=== PATIENT | male | born 1985 | race Caucasian/White ===

== ENCOUNTER 2017-06-12 08:37 | Emergency (ER) | payer MEDICAID ==
[~2017-06-12] VITALS: Ht 182.9 cm; Wt 119.8 kg
[2017-06-12 08:56] VITALS: BP 133/97
--- NOTE | 2017-06-12 09:29 | NUR ---
Patient ambulated to bed 5. RN evaluating patient at bedside.
--- NOTE | 2017-06-12 09:30 | NUR ---
32/M BIB SELF C/o intermittent rash to chest /abdomen/back x 1 month. DENIES N/V/D; AAOX4 WITH EVEN AND STEADY GAIT; LUNGS CLEAR BL; HR EVEN AND REGULAR; PT DENIES ANY FEVER, CP, SOB, OR COUGH AT THIS TIME; PATIENT STATES PAIN OF 0/10 AT THIS TIME; VSS; PATIENT POSITIONED FOR COMFORT; HOB ELEVATED; BEDRAILS UP X2; BED DOWN. ER MD MADE AWARE OF PT STATUS.
--- NOTE | 2017-06-12 09:40 | NUR ---
ER MD DR BOSS EVALUATING PT AT BEDSIDE.
--- NOTE | 2017-06-12 09:50 | NUR ---
Patient appears to be resting comfortably in bed. BP 136/81;DENIES ANY PAIN ' Respirations even and unlabored.WILL CONTINUE TO MONITOR.
[2017-06-12] MEDS ORDERED: methylPREDNISolone SS 125 MG in WATER STERILE 2 ML IM ONE (09:55)
--- NOTE | 2017-06-12 10:00 | NUR ---
ADMINISTERED MED ORDER. Addendum: 06/12/17 at 1005 by [email or web address] MATILDA BOSS REEVALUATING PT AT BEDSIDE.
[2017-06-12 10:12] VITALS: BP 133/92
--- NOTE | 2017-06-12 10:12 | NUR ---
Patient discharged with v/s stable. Written and verbal after care instructions given and explained. Patient alert, oriented and verbalized understanding of instructions. Ambulatory with steady gait. All questions addressed prior to discharge. ID band removed. Patient advised to follow up with PMD. Rx of SELENIUM & PREDNISONE given. Patient educated on indication of medication including possible reaction and side effects. Opportunity to ask questions provided and answered.
== END 2017-06-12 10:12 | disposition home or self-care (01) ==
LOC: MED 08:37
DX: B36.0 Pityriasis versicolor (principal); F17.210 Nicotine dependence, cigarettes, uncomplicated; Z90.89 Acquired absence of other organs; Z71.6 Tobacco abuse counseling
CPT/HCPCS: 96372; 99283; J2930

== ENCOUNTER 2018-06-13 11:14 | Emergency (ER) | payer MEDICAID ==
[~2018-06-13] VITALS: Ht 175.3 cm; Wt 115.7 kg
[2018-06-13 11:17] VITALS: BP 156/96
--- NOTE | 2018-06-13 11:22 | NUR ---
C/O WHITE PATCHES IN THROAT FOR 6 MONTHS. DENIES SOB, PAIN OR FEVER. OROPHARYNX IS CLEAR OF ANY WHITE PATCHES, AIRWAY PATENT. RESP EVEN AND UNLABORED, IN NAD. LS-CLEAR. PT REPORTS SMOKING CIGAREETES AND THE FEAR HE HAS CANCER. PTEACHING DONE ON SMOKING CESSATION, PT VERBALIZED UNDERSTABDING.
--- NOTE | 2018-06-13 12:15 | NUR ---
NO ACUTE CHNAGES IN CONDITON, AWAIITNG FURTHER DISPOSITION
[2018-06-13 12:36] VITALS: BP 144/85
--- NOTE | 2018-06-13 12:36 | NUR ---
Patient discharged with v/s stable. Written and verbal after care instructions given and explained. Patient alert, oriented and verbalized understanding of instructions. Ambulatory with steady gait. All questions addressed prior to discharge. ID band removed. Patient advised to follow up with PMD. Rx of KENALOG given. Patient educated on indication of medication including possible reaction and side effects. Opportunity to ask questions provided and answered.
== END 2018-06-13 12:36 | disposition home or self-care (01) ==
LOC: MED 11:14
DX: K12.0 Recurrent oral aphthae (principal); F17.200 Nicotine dependence, unspecified, uncomplicated
CPT/HCPCS: 99283

== ENCOUNTER 2018-12-10 09:05 | Emergency (ER) | payer MEDICAID ==
[~2018-12-10] VITALS: Ht 175.3 cm; Wt 117.9 kg
[2018-12-10 09:13] VITALS: BP 126/84
--- NOTE | 2018-12-10 09:19 | NUR ---
PT AMBULATED TO ER BED 07
[2018-12-10 10:43] VITALS: BP 126/84
--- NOTE | 2018-12-10 10:43 | NUR ---
Patient discharged with v/s stable. Written and verbal after care instructions given and explained. Patient alert, oriented and verbalized understanding of instructions. Ambulatory with steady gait. All questions addressed prior to discharge. ID band removed. Patient advised to follow up with PMD. Rx of CRUTCHES given. Patient educated on indication of medication including possible reaction and side effects. Opportunity to ask questions provided and answered.
== END 2018-12-10 10:43 | disposition home or self-care (01) ==
LOC: MED 09:05
DX: S93.601A Unspecified sprain of right foot, initial encounter (principal); F17.200 Nicotine dependence, unspecified, uncomplicated; Z90.49 Acquired absence of other specified parts of digestive tract; X58.XXXA Exposure to other specified factors, initial encounter; Y93.39 Activity, other involving climbing, rappelling and jumping off; Y92.89 Other specified places as the place of occurrence of the external cause; Y99.8 Other external cause status
CPT/HCPCS: 73630; 99283; Q0092

== ENCOUNTER 2021-01-10 11:43 | Emergency (ER) | payer MEDICAID ==
[~2021-01-10] VITALS: Ht 175.3 cm; Wt 124.3 kg
[2021-01-10 11:45] VITALS: BP 160/93
--- NOTE | 2021-01-10 11:52 | NUR ---
PT AMBULATED TO BED 8 WITH STEADY GAIT
--- NOTE | 2021-01-10 12:15 | NUR ---
35 YEAR OLD MALE COMPLAINS OF RIGHT SIDED FACIAL SWELLING. PT STATES THAT HE WAS SEEN BY DENTIST FOR THE PAST COUPLE OF WEEKS REGARDING ROOT CANAL. PT STATES THAT THERE WAS PUS COMING OUT OF SITE FOR THE PAST DAY, AND THAT IT USED TO BE VERY PAINFUL BUT NO LONGER FEELING PAIN. RIGHT SIDED FACIAL SWELLING AND REDNESS NOTED. PT TAKING AMOXICILLIN PRESCRIBED BY DENTIST. PT AOX4, BREATHING EVEN AND UNLABORED, SKIN WARM AND DRY. BED IN LOWEST POSITION, LOCKED, BED RAIL UPX1. PMH - DENIES ALLERGIES - NKA
--- NOTE | 2021-01-10 12:32 | NUR ---
airborne weapons technical manager at pt bedside.
[2021-01-10] MEDS ORDERED: AMPICILLIN/SULBACTAM 3 GM VIAL ONE (12:33)
--- NOTE | 2021-01-10 12:41 | NUR ---
RN at pt bedside for assessment.
--- NOTE | 2021-01-10 12:46 | NUR ---
PT TAKEN TO CT
[2021-01-10] MEDS: NACL 0.9% 1,000 ML IV ONE (12:47)
[2021-01-10] MEDS: AMPICILLIN/SULBACTAM 3 GM in NACL 0.9% 100 ML IV ONE (12:48)
[2021-01-10 12:52] LABS: BASOPHILS # (AUTO) 0.1 K/uL (0.00-0.22); BASOPHILS % (AUTO) 0.8 % (0.0-2.0); EOSINOPHILS # (AUTO) 0.1 K/uL (0-0.4); EOSINOPHILS % (AUTO) 0.6 % (0.0-4.0); HEMATOCRIT 47.3 % (36-52); HEMOGLOBIN 16.1 g/dL (12.0-18.0); LYMPHOCYTES # (AUTO) 1.6 K/uL (2.0-11.5); LYMPHOCYTES % (AUTO) 14.3 % (20.5-51.1); MEAN CORPUSCULAR HEMOGLOBIN 32 pg (27-31); MEAN CORPUSCULAR HGB CONC 34 g/dL (33-37); MEAN CORPUSCULAR VOLUME 92.2 fL (80-94); MONOCYTES # (AUTO) 0.6 K/uL (0.8-1.0); MONOCYTES % (AUTO) 4.8 % (1.7-9.3); NEUTROPHILS % (AUTO) 79.5 % (42.2-75.2); PLATELET COUNT (AUTO) 190 K/uL (140-450); RED BLOOD CELL COUNT(AUTO) 5.12 MIL/uL (4.20-6.10); RED CELL DISTRIBUTION WIDTH 13.1 % (11.6-13.7); WHITE BLOOD COUNT (AUTO) 11.3 K/uL (4.8-10.8)
[2021-01-10 13:19] LABS: ANION GAP 14.4 (8-16); CARBON DIOXIDE 27.8 mmol/L (21-32); CREATININE 0.9 mg/dL (0.6-1.3); POTASSIUM 3.2 mmol/L (3.5-5.1)
--- NOTE | 2021-01-10 15:00 | NUR ---
PT ALERT AND AWAKE, BREATHING EVEN AND UNLABORED. NO DISTRESS NOTED.
--- NOTE | 2021-01-10 15:47 | NUR ---
Patient to be transferred to [facility]. Is being transferred due to higher level of care. Receiving facility has accepting physician and available space. ER physician has signed transfer form. Patient or responsible constitution party has agreed to transfer and signed form. Patient belongings inventoried and will be sent with patient. Copy of nursing notes, lab reports, EKG, Physicians Orders and X-rays to be sent with patient. Report called to Law GONZALES at receiving facility. [facility] ambulance service has been called for transfer. ETA is 1600.
--- NOTE | 2021-01-10 16:00 | NUR ---
Michael medina in EDM - 01/10/21 at 1610 by [facility] AT BEDSIDE FOR PATIENT. PT TAKEN AT THIS TIME.
[2021-01-10 16:09] VITALS: BP 173/98
--- NOTE | 2021-01-10 16:10 | NUR ---
[facility] AT BEDSIDE FOR PATIENT. PT TAKEN AT THIS TIME.
--- NOTE | 2021-01-11 20:01 | NUR ---
LATE ENTRY- NORMAL SALINE 0.9% DISCONTINUED AT 1356
--- NOTE | 2021-01-11 20:01 | NUR ---
LATE ENTRY- UNASYN DISCONTINUED AT 1330
== END 2021-01-10 16:10 | disposition designated cancer center or children's hospital (05) ==
LOC: MED 11:43
DX: L03.211 Cellulitis of face (principal); K04.7 Periapical abscess without sinus
CPT/HCPCS: 36415; 70487; 80053; 83605; 85025; 86140; 87040; 96365; 99285; J0295; Q9967

== ENCOUNTER 2023-12-26 05:30 | Emergency (ER) | payer MEDICAID, OTHER ==
[~2023-12-26] VITALS: Ht 177.8 cm; Wt 124.3 kg
[2023-12-26 05:45] VITALS: BP 158/95; PULSE 95; RESP 18; TEMP 98.6; O2SAT 99
[2023-12-26] MEDS: ALUMINUM HYD/MAG/SIMETHICONE 30 ML UDC PO ONE (06:41)
[2023-12-26] MEDS: FAMOTIDINE 20 MG TAB PO ONE (06:42)
[2023-12-26] MEDS: KETOROLAC 30 MG/ML VIAL IM ONE (06:43)
[2023-12-26 06:44] LABS: BASOPHILS # (AUTO) 0.1 K/uL (0.00-0.22); EOSINOPHILS # (AUTO) 0.1 K/uL (0-0.4); EOSINOPHILS % (AUTO) 1.3 % (0.0-4.0); HEMATOCRIT 46.4 % (36-52); HEMOGLOBIN 16.3 g/dL (12.0-18.0); LYMPHOCYTES # (AUTO) 1.8 K/uL (2.0-11.5); LYMPHOCYTES % (AUTO) 24.2 % (20.5-51.1); MEAN CORPUSCULAR HEMOGLOBIN 32 pg (27-31); MEAN CORPUSCULAR HGB CONC 35 g/dL (33-37); MEAN CORPUSCULAR VOLUME 90.5 fL (80-94); MONOCYTES # (AUTO) 0.4 K/uL (0.8-1.0); MONOCYTES % (AUTO) 5.2 % (1.7-9.3); NEUTROPHILS # (AUTO) 5.1 K/uL (1.8-7.7); NEUTROPHILS % (AUTO) 68.3 % (42.2-75.2); PLATELET COUNT (AUTO) 139 K/uL (140-450); RED BLOOD CELL COUNT(AUTO) 5.13 MIL/uL (4.20-6.10); WHITE BLOOD COUNT (AUTO) 7.5 K/uL (4.8-10.8)
[2023-12-26 07:00] LABS: CALCIUM 8.2 mg/dL (8.5-10.1); CREATININE 0.8 mg/dL (0.6-1.3)
[2023-12-26 07:04] LABS: APPEARANCE,URINE CLEAR (CLEAR); BILIRUBIN,URINE NEGATIVE (NEGATIVE); BLOOD, URINE 1+ (NEGATIVE); COLOR,URINE YELLOW (YELLOW); LEUKOCYTE ESTERASE ,URINE NEGATIVE (NEGATIVE); NITRITE, URINE NEGATIVE (NEGATIVE); PROTEIN,URINE 1+ (NEGATIVE); UGLUCOSE 3+ (NEGATIVE); UROBILINOGEN,URINE 0.2 EU/dL (0.2 - 1)
[2023-12-26 07:15] LABS: ALBUMIN 3.5 g/dL (3.4-5.0); BILIRUBIN,DIRECT 0.3 mg/dL (0.0-0.3); TOTAL PROTEIN, SERUM 8.7 g/dL (6.4-8.2)
[2023-12-26 07:15] LABS: BACTERIA,URINE OCCASSIONAL /HPF (None Seen); RBC,URINE 0-5 /HPF (0-5); SQUAMOUS EPITHELIAL CELL,UR 0-3 (FEW) /LPF (0-3 (FEW)); WBC,URINE 0-5 /HPF (0-5)
[2023-12-26] MEDS ORDERED: IBUP-2213 PO (08:14)
[2023-12-26] MEDS ORDERED: ACET-8905 PO (08:14)
[2023-12-26 08:18] VITALS: BP 135/80; PULSE 78; RESP 18; TEMP 98.6; O2SAT 99
== END 2023-12-26 08:25 | disposition home or self-care (01) ==
LOC: MED 05:30
DX: K80.20 Calculus of gallbladder without cholecystitis without obstruction (principal); K80.50 Calculus of bile duct without cholangitis or cholecystitis without obstruction; K76.0 Fatty (change of) liver, not elsewhere classified; Z90.49 Acquired absence of other specified parts of digestive tract; Z79.899 Other long term (current) drug therapy
CPT/HCPCS: 36415; 76705; 80048; 80076; 81001; 83690; 85025; 96372; 99285; J1885; Q0092